=== PATIENT | male | born 1990 ===

== ENCOUNTER 2022-03-09 15:59 | Emergency (ER) | payer SELFPAY ==
[2022-03-09 16:28] VITALS: BP 121/52
== END 2022-03-09 20:08 | disposition left against medical advice (07) ==
LOC: ED 15:59
DX: Z04.1 Encounter for examination and observation following transport accident (principal); Z53.21 Procedure and treatment not carried out due to patient leaving prior to being seen by health care provider; V49.9XXA Car occupant (driver) (passenger) injured in unspecified traffic accident, initial encounter; Y93.89 Activity, other specified; Y92.89 Other specified places as the place of occurrence of the external cause; Y99.8 Other external cause status